=== PATIENT | male | born 1960 | race Caucasian/White ===

== ENCOUNTER 2019-07-01 07:49 | Emergency (ER) | payer OTHER ==
--- NOTE | 2019-07-01 08:28 | EDM.PDOC ---
ED HPI GENERAL MEDICAL PROBLEM - General Chief Complaint: Upper Extremity Injury/Pain Stated Complaint: LT INDEX FINGER-POSSIBLE INFECTION Time Seen by Provider: 07/01/19 08:24 Source of Information: Reports: Patient, RN Notes Reviewed History Limitations: Reports: No Limitations - History of Present Illness INITIAL COMMENTS - FREE TEXT/NARRATIVE: 59-year-old gentleman presents emergency department today with concern about infection in digit #2 on his left hand is located around the nailbed he has no other symptoms. He [place] of [place] and will not have access to medical care left second finger Pain Score (Numeric/FACES): 3 - Related Data Allergies Allergy/AdvReac Type Severity Reaction Status Date / Time No Known Drug Allergies Allergy Unknown none Verified 07/01/19 08:03 Past Medical History HEENT History: Reports: Sinusitis Cardiovascular History: Reports: High Cholesterol, Hypertension Genitourinary History: Reports: BPH Musculoskeletal History: Reports: Arthritis, Other (See Below) Other Musculoskeletal History: fibia and tibia fractures in the 70's Psychiatric History: Reports: PTSD Endocrine/Metabolic History: Reports: Obesity/BMI 30+ - Past Surgical History GI Surgical History: Reports: Colonoscopy, Hernia, Inguinal, Polypectomy Social & Family History - Family History Family Medical History: Noncontributory - Tobacco Use Smoking Status *Q: Never Smoker - Caffeine Use Caffeine Use: Reports: Coffee, Tea - Recreational Drug Use Recreational Drug Use: No Review of Systems - Review of Systems Review Of Systems: See Below Musculoskeletal: Reports: Other (Finger pain) Skin: Reports: Erythema, Change in Hair/Nails ED EXAM, GENERAL - Physical Exam Exam: See Below Free Text/Narrative:: Examination of the left hand I do appreciate some erythema and edema along the medial aspect of the nailbed digit #2 left hand radial pulses +2 Exam Limited By: No Limitations General Appearance: Alert, WD/WN, No Apparent Distress Course - Vital Signs Last Recorded V/S: Last Vital Signs Temp 97.3 F 07/01/19 08:14 Pulse 76 07/01/19 08:14 Resp 16 07/01/19 08:14 BP 129/89 07/01/19 08:14 Pulse Ox 98 07/01/19 08:14 Departure - Departure Time of Disposition: 08:27 Disposition: Home, Self-Care 01 Condition: Good Clinical Impression: Paronychia - Discharge Information Referrals: Diana Mckinney MD [Primary Care Provider] - Additional Instructions: Take full course of antibiotics, please followup with your primary care provider in upon return home if not better Sepsis Event Note - Evaluation Sepsis Screening Result: No Definite Risk - Focused Exam Vital Signs: Vital Signs Temp Pulse Resp BP Pulse Ox 07/01/19 08:14 97.3 F 76 16 129/89 98 Date Exam was Performed: 07/01/19 Time Exam was Performed: 08:24 - Assessment/Plan Plan: Assessment Acuity = acute Site and laterality = paronychia digit #2 left hand Etiology = probable bacterial cause due to nail ingrown Manifestations = none Location of injury = Home Lab values = none Plan Placed on Keflex 500 mg 4 times daily x7 days, follow-up with medical care upon return home if not better This note was dictated using [employer] voice recognition software please call with any questions on syntax or grammar.
== END 2019-07-01 08:55 | disposition home or self-care (01) ==
LOC: JP.ED 07:49 → EDBD 07:49 → JP.ED 08:55
DX: L03.012 Cellulitis of left finger (principal); I10 Essential (primary) hypertension; E66.9 Obesity, unspecified; Z68.35 Body mass index [BMI] 35.0-35.9, adult
CPT/HCPCS: 99283

== ENCOUNTER 2020-10-10 10:54 | Emergency (ER) | payer OTHER ==
--- NOTE | 2020-10-10 11:40 | EDM.PDOC ---
ED HPI GENERAL MEDICAL PROBLEM - General Chief Complaint: Eye Problems Stated Complaint: SOMETHING IN LT EYE Time Seen by Provider: 10/10/20 11:30 Source of Information: Reports: Patient, Old Records History Limitations: Reports: No Limitations - History of Present Illness INITIAL COMMENTS - FREE TEXT/NARRATIVE: 60 yo male was weed whacking yesterday and felt something hit his L eye. He still had some irritation this morning so came to the ER. Is actually feeling better now that he is here. 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) Left Eye Pain Score (Numeric/FACES): 2 - Related Data Allergies Allergy/AdvReac Type Severity Reaction Status Date / Time No Known Drug Allergies Allergy Unknown none Verified 07/01/19 08:03 Home Meds: Home Meds Med For Cholesterol 0 mg PO DAILYRT 10/10/20 [History] lisinopriL [Lisinopril] 20 mg PO DAILY 10/10/20 [History] Past Medical History HEENT History: Reports: Sinusitis Cardiovascular History: Reports: High Cholesterol, Hypertension Genitourinary History: Reports: BPH Musculoskeletal History: Reports: Arthritis, Other (See Below) Other Musculoskeletal History: fibia and tibia fractures in the 70's Psychiatric History: Reports: PTSD Endocrine/Metabolic History: Reports: Obesity/BMI 30+ - Infectious Disease History Infectious Disease History: Reports: Chicken Pox, Shingles - Past Surgical History GI Surgical History: Reports: Colonoscopy, Hernia, Inguinal, Polypectomy Social & Family History - Family History Family Medical History: No Pertinent Family History - Tobacco Use Tobacco Use Status *Q: Never Tobacco User - Caffeine Use Caffeine Use: Reports: Coffee - Recreational Drug Use Recreational Drug Use: No ED ROS GENERAL - Review of Systems Review Of Systems: See Below Constitutional: Reports: No Symptoms HEENT: Reports: Eye Pain (improving rapidly). Denies: Eye Discharge, Vision Change Skin: Reports: No Symptoms Neurological: Reports: No Symptoms ED EXAM GENERAL W FULL EYE - Physical Exam Exam: See Below Exam Limited By: No Limitations General Appearance: Alert, WD/WN, No Apparent Distress Eye Exam: Bilateral Eye: EOMI, Normal Inspection, PERRL, Other (no photophobia or conjunctival injection) Eyelids: Bilateral: Normal Appearance Conjunctiva & Sclera: Bilateral: Normal Appearance Cornea Exam: Left: Normal Appearance, Examined with Flourescein (no dye uptake) Extraocular Movements: Bilateral: Intact Pupils: Normal Accommodation Pupillary Size: Bilateral: 3 mm Anterior Chamber: Right: Hyphema Ears: Hearing Grossly Normal Nose: Normal Inspection, No Blood Throat/Mouth: Normal Voice, No Airway Compromise Head: Atraumatic, Normocephalic Neurological: Alert, Oriented, CN II-XII Intact, Normal Cognition, No Motor/Sensory Deficits Psychiatric: Normal Affect, Normal Mood Skin Exam: Warm, Dry, Intact, Normal Color, No Rash Course - Vital Signs Last Recorded V/S: Last Vital Signs Temp 36.7 C 10/10/20 11:05 Pulse 73 10/10/20 11:05 Resp 16 10/10/20 11:05 BP 117/83 10/10/20 11:05 Pulse Ox 98 10/10/20 11:05 Departure - Departure Time of Disposition: 11:39 Disposition: Home, Self-Care 01 Condition: Good Clinical Impression: Normal eye exam - Discharge Information *PRESCRIPTION DRUG MONITORING PROGRAM REVIEWED*: Not Applicable *COPY OF PRESCRIPTION DRUG MONITORING REPORT IN PATIENT [place]: Not Applicable Referrals: Diana Mckinney MD [Primary Care Provider] - Additional Instructions: Recheck as needed. Sepsis Event Note (ED) - Evaluation Sepsis Screening Result: No Definite Risk - Focused Exam Vital Signs: Vital Signs Temp Pulse Resp BP Pulse Ox 10/10/20 11:05 36.7 C 73 16 117/83 98 10/10/20 11:04 36.7 C 73 16 117/83 98
== END 2020-10-10 11:52 | disposition home or self-care (01) ==
LOC: JP.ED 10:54
DX: Z01.00 Encounter for examination of eyes and vision without abnormal findings (principal); I10 Essential (primary) hypertension; E66.9 Obesity, unspecified; Z68.33 Body mass index [BMI] 33.0-33.9, adult; Z79.899 Other long term (current) drug therapy
CPT/HCPCS: 99282

== ENCOUNTER 2023-04-27 11:30 | Emergency (ER) | payer OTHER | END 2023-04-27 12:45 | disposition home or self-care (01) | LOC: JP.ED 11:30 | DX: I10 Essential (primary) hypertension (principal); E78.00 Pure hypercholesterolemia, unspecified; M19.90 Unspecified osteoarthritis, unspecified site; Z79.82 Long term (current) use of aspirin; E66.9 Obesity, unspecified; Z68.33 Body mass index [BMI] 33.0-33.9, adult; Z79.899 Other long term (current) drug therapy | CPT/HCPCS: 99283 ==